=== PATIENT | male | born 1965 | race Caucasian/White ===

== ENCOUNTER 2022-06-17 10:32 | Day surgery (SDC) | payer OTHER, SELFPAY ==
[2022-05-16 14:38] VITALS: BMI 34.3
[2022-06-05 14:37] VITALS: BMI 33.4
[2022-06-17 11:56] VITALS: BMI 32.8
[2022-06-17 11:58] VITALS: BP 153/97; PULSE 73; RESP 18; TEMP 37.2; O2SAT 99
[2022-06-17] MEDS: LACTATED RINGERS 1,000 ML 150 ML IV CONT (12:21)
--- NOTE | 2022-06-17 12:41 | PM.HPGS ---
History of Present Illness History of Present Illness Consent: Risks, benefits, and alternatives have been discussed and questions answered. Patient agrees to proceed with procedure. Chief complaint: Neoplasm Screening Narrative: Stanley Brand is a 56 year old male Presents for screening colonoscopy. Patient's current weight appetite and bowel movements are normal. Patient denies abdominal pain. He has had no bleeding. Family history is significant his brother has had colon cancer. Patient himself reports several colon polyps that time of last colonoscopy about 5 years ago. Review of Systems Review of Systems: Review of systems noncontributory. [facility] Social History Social History Smoking status: Never smoker Alcohol intake: current Drinks per week: 6 Alcohol use details: beer Substance use: never Substance use type: does not use Living arrangements: with family Spiritual care concerns: No Meds Home Medications and Allergies Home Medications Medication Instructions Recorded Confirmed Type amlodipine 2.5 mg tablet 2.5 mg PO DAILY 06/05/22 06/17/22 History atorvastatin 20 mg tablet 20 mg PO DAILY 06/05/22 06/17/22 History lisinopril 40 mg tablet 40 mg PO DAILY 06/05/22 06/17/22 History Allergies Allergy/AdvReac Type Severity Reaction Status Date / Time No Known Allergies Allergy Verified 06/17/22 11:54 Vital Signs Vital Signs - 24 hr 06/17/22 11:58 Temperature 99.0 F Pulse Rate 73 Respiratory Rate 18 Blood Pressure 153/97 H Pulse Oximetry 99 Oxygen Delivery Room Air Exam Narrative: Phys physical exam reveals patient to be alert. Vital signs stable. HEENT exam is unremarkable. Patient is anicteric. Lungs are clear to auscultation and percussion. Heart is without murmur or extra sounds. Abdomen bowel sounds are present soft nontender with no organomegaly. Digital external rectal exam is normal. Assessment and Plan Assessment and plan (1) Family hx of colon cancer: Code(s): Z80.0 - Family history of malignant neoplasm of digestive organs Status: Acute Assessment and Plan: Patient's brother has had colon cancer. For this reason screening colonoscopy advised at 5 year intervals. Patient also reports personal history of colon polyps several years ago. Plan for surveillance colonoscopy at this time.
--- NOTE | 2022-06-17 12:44 | P.PNAN_ITS ---
Anes - Initial Pre Proc Eval Procedure: Operation Date: 06/17/22 13:00 Proposed Procedures p Screening Colonoscopy - Lauri Hogan MD Date/Time: 06/17/22 12:45 Surgeon: Lauri Hogan MD Pre Op Diagnosis: Neoplasm Screening Patient Data Age: 56 Gender: M Height: 1.85 m Weight: 112.9 kg Last Vital Signs Temp 37.2 C 06/17/22 11:58 Pulse 73 06/17/22 11:58 Resp 18 06/17/22 11:58 BP 153/97 H 06/17/22 11:58 Pulse Ox 99 06/17/22 11:58 O2 Del Method Room Air 06/17/22 11:58 Allergies Allergy/AdvReac Type Severity Reaction Status Date / Time No Known Allergies Allergy Verified 06/17/22 11:54 Home Medications Medication Instructions Recorded Confirmed Type amlodipine 2.5 mg tablet 2.5 mg PO DAILY 06/05/22 06/17/22 History atorvastatin 20 mg tablet 20 mg PO DAILY 06/05/22 06/17/22 History lisinopril 40 mg tablet 40 mg PO DAILY 06/05/22 06/17/22 History Patient hx anesthesia problems: none Family hx anesthesia problems: none Results Review: All pre-operative results and documents have been reviewed as part of the pre- operative evaluation. REPLACED BY [facility] Past Medical History Medical History (Updated 06/17/22 @ 12:45 by Harlan Browne MD) HTN (hypertension) Hyperlipidemia Surgical History Surgical History (Updated 06/17/22 @ 12:45 by Harlan Browne MD) H/O colonoscopy Social History Social History Smoking status: Never smoker Alcohol intake: current Drinks per week: 6 Alcohol use details: beer Substance use: never Substance use type: does not use Living arrangements: with family Spiritual care concerns: No Anes - Eval Final PreProcedure Day of Procedure 06/17/22 12:45 Patient weight: obese Heart: regular rate and rhythm Lungs: clear to auscultation Airway: Mallampati scale class 1 Neurological: alert and oriented Last oral intake: >/= 8 hours Emergent: no Anesthetic plan: proceed Anesthesia type and monitoring: general GIVS and standard monitoring Results Review: All pre-operative results and documents have been reviewed as part of the pre- operative evaluation. Informed Consent: The patient's anesthetic plan and its attendant risks and benefits were discussed with the patient/family/POA. Questions were solicited and answers pro vided to the satisfaction of the patient/family/POA.
[2022-06-17 13:31] VITALS: BP 135/77; PULSE 74; RESP 18; O2SAT 99
[2022-06-17 13:41] VITALS: BP 126/70; PULSE 71; RESP 18; O2SAT 99
--- NOTE | 2022-06-17 13:47 | WPDANESPN ---
Anes - Prog Note Post-Op Date/Time: 06/17/22 13:47 Cardiovascular status: normal Respiratory status: normal Airway patency: baseline Mental status: baseline Post-Op hydration status: normal Vital Signs: Last Vital Signs Temp 37.2 C 06/17/22 11:58 Pulse 73 06/17/22 11:58 Resp 18 06/17/22 11:58 BP 153/97 H 06/17/22 11:58 Pulse Ox 99 06/17/22 11:58 O2 Del Method Room Air 06/17/22 11:58 Pain Score (VAS): 0/10 I/O: Intake & Output 06/16/22 06/17/22 06/17/22 23:59 07:59 15:59 Intake Total 250 Balance 250 Patient Feedback: Patient satisfied with anesthetic care.
[2022-06-17 13:51] VITALS: BP 123/73; PULSE 65; RESP 18; O2SAT 97
== END 2022-06-17 13:59 | disposition home or self-care (01) ==
PROVIDERS: Visit Provider Internal Medicine Gastroenterology
PROC: 0DJD8ZZ Inspection of Lower Intestinal Tract, Via Natural or Artificial Opening Endoscopic (ICD-10-PCS; CPT 45378; principal; 2022-06-17 13:00)
DX: Z80.0 Family history of malignant neoplasm of digestive organs (principal)
CPT/HCPCS: 45378